=== PATIENT | female | born 1950 | race Two or more races ===

== ENCOUNTER 2021-06-25 05:53 | Day surgery (SDC) | payer OTHER | END 2021-06-25 12:30 | disposition home or self-care (01) | LOC: AMB-ENDOS 05:53 | PROVIDERS: ATTEND Colon & Rectal Surgery | DX: K62.1 Rectal polyp (principal); K64.1 Second degree hemorrhoids; Z20.822 Contact with and (suspected) exposure to COVID-19 ==